=== PATIENT | female | born 1995 | race Caucasian/White ===

== ENCOUNTER 2019-01-31 06:00 | Inpatient (IN) | payer BC ==
[~2019-01-31] VITALS: Ht 180.3 cm; Wt 79.5 kg
[2019-01-31] VITALS (50 sets, daily range): BP systolic 115–141; BP diastolic 57–90; PULSE 76–133; TEMP 98.1–99.8
--- NOTE | 2019-01-31 06:15 | NUR ---
0615-G1L0 37.2week patient of Dr. Pham's ambulatory to LR 4 with complaint of back pain that woke her up at around 0100. Rates pain 4/10. Reports pain slowly getting more intense. BP 133/90, hr 121. FHR reactive baseline 130bpm. Audible irregular heartbeat in FHR intermittently. 0620-SVE 4/80/-2. Updated on plan of care, Assessment complete. 0725-SVE 4-5/80/-2, no longer having audible irregular heartbeat in FHR. Patient reports pain moving to front lower abdomen and stronger. 0730-Dr. Pham updated, see physician notification
[2019-01-31] MEDS ORDERED: PRENATAL (06:32)
--- NOTE | 2019-01-31 07:32 | NUR ---
0732-PATIENT OFF EFM TO AMBULATE IN HALLS. 0815-PATIENT BACK ON EFM. 0825-SVE /2, DISCUSSED PLAN OF CARE. 0835-DR. TORRES UPDATED, SEE PHYSICIAN NOTIFICATION 0839-PATIENT UP TO BB 0840-DIFFICULTY TRACING FHR DUE TO MATERNAL POSITIONING. RN AT BEDSIDE ADUSTS EFM.
--- NOTE | 2019-01-31 09:41 | NUR ---
0930-PITOCIN STARTED PER MD ORDER AND PROTOCOL. SEE EMAR.
--- NOTE | 2019-01-31 10:20 | NUR ---
1000 DR TORRES HERE. SVE 5-6/80/-1. ORDERS TO ADMIT PATIENT FOR LABOR AND WILL BE BACK AT NOON TO REASSESS.
[2019-01-31 11:16] LABS: BASO % 0.2 % (0.0-2.0); EOS % 0.1 % (0-4.0); GRAN # 12.3 (1.4-6.5); GRAN % 85.2 % (42.2-75.2); HEMATOCRIT 40.6 % (37.0-47.0); HEMOGLOBIN 13.8 g/dl (12.5-16.0); LYMPH # 1.5 (1.2-3.4); LYMPH % 10.4 % (20.0-51.0); MEAN CELL VOLUME 92 fl (80.0-100.0); MEAN CORPUSCULAR HEMOGLOBIN 31 pg (27.0-31.0); MEAN CORPUSCULAR HGB CONC 34 g/dl (33.0-37.0); MEAN PLATELET VOLUME 12.4 fl (7.4-10.4); MONO # 0.5 (0.1-0.6); MONO % 3.5 % (1.7-9.3); PLATELET COUNT 185 K/mm3 (130-400); RED BLOOD COUNT 4.43 M/mm3 (4.10-5.30); REDCELL DISTRIBUTION WIDTH-CV 12.6 % (11.5-14.5)
--- NOTE | 2019-01-31 15:28 | NUR ---
1500 PATIENT READY FOR EPIDURAL PLACEMENT. Dana BALDWIN CRNA CALLED. 1510 Dana BALDWIN CRNA AT BEDSIDE. PATIENT SITS ON EDGE OF BED. TOLERATES WELL. DENIES NEEDS AT THIS TIME. SEE SELENA NOTES FOR QUESTIONS.
--- NOTE | 2019-01-31 18:15 | NUR ---
Report received from Valeria MOLINA. Plan of care explained to pt who verblalizes understanding. Pericare provided and pt repositioned WR and peanut ball placed. Call light within reach. 1951: SVE 7/100/0. Plan of care explained and questions answered. Pt repositioned to right lateral and right leg placed in stirrups. 2031: Pt respositoned to left lateral and left legs placed back in stirrups. 2054: Pt states she is feeling more pressure with contractions. SVE 9/100/+1. Pt repositioned back to right lateral per requested and right leg placed in stirrups. Maternal temp of 99.8. 2100: updated on pts status. Pitocin decreased down to 4mus/hr per orders. Pt and updated on plan of care and questions answered. Call light within reach.
--- NOTE | 2019-01-31 22:00 | NUR ---
2127: Recurrent early decelerations noted with contractions. Pt repositioned out of stirrups. 2150: Pt called out stating she is feeling the urge to push. SVE C/+2. 2155: Pt educated on pushing with contractions. Pt verbalizes understanding. Pt completes practice push with this RN and moves vertex well. 2199: updated on pts status and requested to hospital. Pt and updated on plan of care and continuing to push with contractions. Tabares removed. 2203: Pt continues to push with contractions with this RN. at bedside. 2225: at bedside and pt repositioned into footplates for delivery. 1709-0327: Recurrent variable deceleration noted between contractions. Lowest point 80bpms. Scalp stimulation completed by . 2235: Spontaneous vaginal delivery of viable male by . Pitocin stopped. Infants nares bulb suctioned by provider. Infant to mothers chest where dried and stimulated by nursery RN. Cord clamped X2 and cut by FOB. Care of assumed by Buck MOLINA. 2238: Spontaneous delivery of intact placenta by . Pitocin resummed at 333mus/hr per protocol. Bilateral first degree laceration repaired by . Fundal message completed, fundus firm midline and bleeding minimal. minimal clots expressed with message. Pericare provided, pads changed, ice pack applied and pt repositioned in bed. Plan of care and safety precautions explained to pt and who verbalize understanding. Call light within reach. See anesthesia records and doctor dications.
[2019-02-01] VITALS (9 sets, daily range): BP systolic 118–128; BP diastolic 59–81; PULSE 84–115; TEMP 97.9–98.8
--- NOTE | 2019-02-01 09:08 | NUR ---
Initial visit; Family thanked Scroll Saw Operator for offering congratulations and God's blessings to their family for the of their son. Scroll Saw Operator thanked family for choosing [facility].
[2019-02-02 08:38] VITALS: BP 124/66; PULSE 78; TEMP 97.8
== END 2019-02-02 15:10 | disposition home or self-care (01) | DRG 807 ==
LOC: LDRO 06:00 → LDR 10:00 → OB 02-01 01:47
PROVIDERS: ADMIT Obstetrics & Gynecology
PROC: 10E0XZZ Delivery of Products of Conception, External Approach (ICD-10-PCS; principal; 2019-01-31)
PROC: 0HQ9XZZ Repair Perineum Skin, External Approach (ICD-10-PCS; 2019-01-31)
PROC: 0UQMXZZ Repair Vulva, External Approach (ICD-10-PCS; 2019-01-31)
DX: O69.81X0 Labor and delivery complicated by cord around neck, without compression, not applicable or unspecified (principal); Z37.0 Single live birth; Z3A.37 37 weeks gestation of pregnancy; O70.0 First degree perineal laceration during delivery
CPT/HCPCS: J2405; J2590; J2795; J7120

== ENCOUNTER → 2020-06-16 | Outpatient (CLI) | payer BC ==
[~2020-06-16] MED LIST: IBU800 M1 PO; PRENATAL
== END ==
LOC: DIA.ED
DX: O24.419 Gestational diabetes mellitus in pregnancy, unspecified control (principal)
CPT/HCPCS: G0108

== ENCOUNTER → 2020-07-07 | Outpatient (CLI) | payer BC | LOC: DIA.ED 10:30 | DX: O24.419 Gestational diabetes mellitus in pregnancy, unspecified control (principal) | CPT/HCPCS: G0108 ==

== ENCOUNTER 2020-08-08 10:37 | Inpatient (IN) | payer BC ==
[2020-08-08] VITALS (27 sets, daily range): BP systolic 104–140; BP diastolic 57–82; PULSE 74–122; TEMP 98.2–98.9
[~2020-08-08] VITALS: Ht 177.8 cm; Wt 72.7 kg
--- NOTE | 2020-08-08 10:35 | NUR ---
Patient arrives ambulatory with spouse with complaints of intermittent contractions that started yesterday evening and have worsened this morning. Patient denies vaginal bleeding or ROM, and reports normal movement. Patient changes into gown, EFM explained and placed. VS obtained. SVE per this RN with PREETI. Patient repositioned WL and updated on plan of care. Assessment completed. See physician notification.
[~2020-08-08 10:37] MED LIST changes: -IBU800 M1 PO
--- NOTE | 2020-08-08 11:05 | NUR ---
Patient taken off EFM to ambulate in hallway per request and order.
--- NOTE | 2020-08-08 12:05 | NUR ---
Dr. Bernstein at [facility]. SVE per provider with AROM of clear fluid. Pericare performed. Pt requesting epidural. Jessy Andrade CRNA notified.
[2020-08-08 12:20] LABS: BASO % 0.3 % (0.0-2.0); EOS % 0.1 % (0-4.0); GRAN # 9.8 (1.4-6.5); GRAN % 81.7 % (42.2-75.2); HEMATOCRIT 39.2 % (37.0-47.0); HEMOGLOBIN 13.4 g/dl (12.5-16.0); LYMPH # 1.6 (1.2-3.4); LYMPH % 12.9 % (20.0-51.0); MEAN CELL VOLUME 91 fl (80.0-100.0); MEAN CORPUSCULAR HEMOGLOBIN 31 pg (27.0-31.0); MEAN CORPUSCULAR HGB CONC 34 g/dl (33.0-37.0); MEAN PLATELET VOLUME 11.9 fl (7.4-10.4); MONO # 0.5 (0.1-0.6); MONO % 4.4 % (1.7-9.3); PLATELET COUNT 185 K/mm3 (130-400); RED BLOOD COUNT 4.29 M/mm3 (4.10-5.30); REDCELL DISTRIBUTION WIDTH-CV 12.7 % (11.5-14.5)
--- NOTE | 2020-08-08 12:30 | NUR ---
BS 86
--- NOTE | 2020-08-08 12:34 | NUR ---
Pt sitting upright for epidural placement. Difficulty tracing FHR due to maternal position. RN at bedside adjusting monitors. FHR harshabile.
--- NOTE | 2020-08-08 14:30 | NUR ---
BS 72
--- NOTE | 2020-08-08 16:03 | NUR ---
Dr. Sparks remains on unit. FHR noted in the 100s. Pt repositioned LL. SVE per this RN C/+2. Pt prepped for delivery. 161-Pt begins pushing. Moves vertex well with one contraction. attended by Dr. Sparks. Cord clamped x2 and cut from umbilicus. dried and placed on maternal abdomen. Care of infant to Feng Clark RN. Apgars 8/9. 1614- of placenta. Fundus firm at umbilicus. Bleeding WNL. Pitocin bolus infusing per protocol. Perineum intact. Pericare performed. Ice pack applied. Pt updated on POC. Bed locked in low position. Call light within reach. No questions or concerns at this time.
--- NOTE | 2020-08-08 18:30 | NUR ---
1830 EPID CATH DCD. UP TO BR WITH ASSIST AND VOIDED 600CC. PERICARE DONE. AMB TO 218 AND VICKI WELL.
[2020-08-09 04:16] VITALS: BP 108/76; PULSE 79; TEMP 98.1
[2020-08-09 09:27] VITALS: BP 108/64; PULSE 80; TEMP 97.7
[2020-08-09] MEDS ORDERED: IBU800 M1 PO (10:14)
--- NOTE | 2020-08-09 16:48 | NUR ---
DISCHARGE INFO GIVEN TO MOTHER. NO QUESTIONS AT THIS TIME.
== END 2020-08-09 18:20 | disposition home or self-care (01) | DRG 807 ==
LOC: LDRO 10:37 → LDR 10:37 → OB 18:30
PROVIDERS: ADMIT Obstetrics & Gynecology
PROC: 10E0XZZ Delivery of Products of Conception, External Approach (ICD-10-PCS; principal; 2020-08-08)
DX: O24.420 Gestational diabetes mellitus in childbirth, diet controlled (principal); Z37.0 Single live birth; Z3A.37 37 weeks gestation of pregnancy
CPT/HCPCS: OP; J2590; J2795; J7120